=== PATIENT | female | born 1950 | race Two or more races ===

== ENCOUNTER 2017-11-01 15:07 | Emergency (ER) | payer MEDICARE, OTHER ==
[2017-11-01 19:06] LABS: ADD MAN DIFF? NO
[2017-11-01 19:16] LABS: ADD UMIC NO; UR ASCORBIC ACID NEGATIVE (NEGATIVE); UR BILIRUBIN (Dip) NEGATIVE (NEGATIVE); UR BLOOD (Dip) NEGATIVE (NEGATIVE); UR CLARITY CLEAR (CLEAR); UR COLOR STRAW (YELLOW); UR GLUCOSE (Dip) 3+ mg/dL (NEGATIVE); UR KETONES (Dip) TRACE mg/dL (NEGATIVE); UR LEUKOCYTE ESTERASE (Dip) NEGATIVE Leu/ul (NEGATIVE); UR NITRITE (Dip) NEGATIVE (NEGATIVE); UR TOTAL PROTEIN (Dip) NEGATIVE (NEGATIVE); UR UROBILINOGEN (Dip) NEGATIVE (NEGATIVE)
[2017-11-01 19:23] LABS: HEMOGLOBIN A1C 13.4 % (0-5.9)
[2017-11-01] MEDS: SOD CHLORIDE 0.9% 1,000 ML IV (19:26)
[2017-11-01 19:28] LABS: WHITE BLOOD COUNT 11.2 10^3/ul (4.8-10.8)
[2017-11-01 19:29] LABS: BASOPHIL # 0.1 10^3/ul (0.0-0.1); BASOPHILS % 0.4 % (0.0-2.0); EOSINOPHILS # 0.3 10^3/ul (0.0-0.5); HEMATOCRIT 43.2 % (37.0-47.0); HEMOGLOBIN 14.5 g/dl (12.0-16.0); LYMPHOCYTES # 4.3 10^3/ul (0.8-2.9); LYMPHOCYTES % 38.6 % (15.0-51.0); MEAN CORPUSCULAR HGB CONC 33.6 g/dl (32.0-37.0); MEAN CORPUSCULAR VOLUME 92.3 fl (82.0-101.0); MEAN PLATELET VOLUME 10.2 fl (7.4-10.4); MONOCYTE # 0.8 10^3/ul (0.3-0.9); MONOCYTES % 7.3 % (0.0-11.0); NEUTROPHIL # 5.6 10^3/ul (1.6-7.5); NEUTROPHILS % 50.2 % (39.0-77.0); PLATELET COUNT 246 10^3/UL (140-415); RED BLOOD COUNT 4.68 10^6/ul (4.20-5.40); RED CELL DISTRIBUTION WIDTH 12.6 % (11.5-14.5)
[2017-11-01 19:32] LABS: ALANINE AMINOTRANSFERASE 46 IU/L (13-69); ALBUMIN 4.7 g/dl (3.3-4.9); ALBUMIN/GLOBULIN RATIO 1.51; ALKALINE PHOSPHATASE 131 IU/L (42-121); AMYLASE 58 U/L (11-123); ANION GAP 19 (8-16); ASPARTATE AMINO TRANSFERASE 26 IU/L (15-46); BILIRUBIN,INDIRECT 0.3 mg/dl (0-1.1); BILIRUBIN,TOTAL 0.3 mg/dl (0.2-1.3); BLOOD UREA NITROGEN 18 mg/dl (7-20); CALCIUM 10.3 mg/dl (8.4-10.2); CARBON DIOXIDE 26 mmol/L (21-31); CHLORIDE 98 mmol/L (97-110); CREATININE 1.01 mg/dl (0.44-1.00); GLUCOSE 364 mg/dl (70-220); INR 0.86; LIPASE 104 U/L (23-300); MAGNESIUM 1.6 mg/dl (1.7-2.5); PHOSPHORUS 4.7 mg/dl (2.5-4.9); POTASSIUM 4.5 mmol/L (3.5-5.1); PROTIME 11.8 Sec (11.9-14.9); PT RATIO 0.9; SODIUM 138 mmol/L (135-144); TOTAL PROTEIN 7.8 g/dl (6.1-8.1)
[2017-11-01 19:33] LABS: PARTIAL THROMBOPLASTIN TIME 30.9 Sec (25.0-35.0)
[2017-11-01 19:33] LABS: LACTIC ACID 2.1 mmol/L (0.5-2.0)
[2017-11-01 20:21] LABS: TROPONIN-I < 0.010 ng/ml (0.000-0.120)
[2017-11-01] MEDS: CEFEPIME 2GM/50 ML (PMX) 50 ML IVPB (20:59)
[2017-11-01] MEDS: SODIUM CHLORIDE 0.9% 1L BAG IV* (21:31)
[2017-11-01] MEDS: VANCOMYCIN 1 GM (PMX) 250 ML IVPB (21:33)
[2017-11-01] MEDS: ONDANSETRON 4 MG INJ IV (21:33)
[2017-11-01] MEDS: morphine 4 MG/ML VIAL IV (21:33)
[2017-11-01 22:43] LABS: LACTIC ACID 1.4 mmol/L (0.5-2.0)
[2017-11-02] MEDS: ONDANSETRON 4 MG INJ IV (00:03)
[2017-11-02] MEDS: HYDROmorphONE 1 MG/ML SYG IV (00:04)
== END 2017-11-02 10:10 | disposition home or self-care (01) ==
LOC: E/R 11-02 10:10
DX: E11.65 Type 2 diabetes mellitus with hyperglycemia (principal); G43.009 Migraine without aura, not intractable, without status migrainosus; J84.9 Interstitial pulmonary disease, unspecified; J45.909 Unspecified asthma, uncomplicated; I10 Essential (primary) hypertension; R06.02 Shortness of breath; Z79.84 Long term (current) use of oral hypoglycemic drugs; Z87.891 Personal history of nicotine dependence
CPT/HCPCS: 71045; 71250; 80053; 81003; 82150; 82962; 83036; 83605; 83690; 83735; 84100; 84484; 85025; 85610; 85730; 87040; 87086; 93005; 96361; 96365; 96375; 96376; 99285-25

== ENCOUNTER 2018-09-21 15:29 | Emergency (ER) | payer MEDICARE, OTHER ==
[2018-09-21 16:33] LABS: ADD MAN DIFF? NO
[2018-09-21 16:37] LABS: BASOPHIL # 0.1 10^3/ul (0.0-0.1); BASOPHILS % 0.5 % (0.0-2.0); EOSINOPHILS # 0.1 10^3/ul (0.0-0.5); EOSINOPHILS % 0.9 % (0.0-7.0); HEMATOCRIT 41.1 % (37.0-47.0); HEMOGLOBIN 13.6 g/dl (12.0-16.0); LYMPHOCYTES # 2.5 10^3/ul (0.8-2.9); LYMPHOCYTES % 23.7 % (15.0-51.0); MEAN CORPUSCULAR HEMOGLOBIN 29.2 pg (29.0-33.0); MEAN CORPUSCULAR HGB CONC 33.1 g/dl (32.0-37.0); MEAN CORPUSCULAR VOLUME 88.4 fl (82.0-101.0); MEAN PLATELET VOLUME 10.2 fl (7.4-10.4); MONOCYTE # 0.8 10^3/ul (0.3-0.9); MONOCYTES % 7.9 % (0.0-11.0); NEUTROPHIL # 7.1 10^3/ul (1.6-7.5); NEUTROPHILS % 66.5 % (39.0-77.0); PLATELET COUNT 238 10^3/UL (140-415); RED BLOOD COUNT 4.65 10^6/ul (4.20-5.40); RED CELL DISTRIBUTION WIDTH 11.9 % (11.5-14.5)
[2018-09-21 16:37] LABS: WHITE BLOOD COUNT 10.7 10^3/ul (4.8-10.8)
[2018-09-21 16:40] LABS: ADD UMIC NO; UR ASCORBIC ACID NEGATIVE (NEGATIVE); UR BILIRUBIN (Dip) NEGATIVE (NEGATIVE); UR BLOOD (Dip) NEGATIVE (NEGATIVE); UR CLARITY CLEAR (CLEAR); UR COLOR STRAW (YELLOW); UR GLUCOSE (Dip) 3+ mg/dL (NEGATIVE); UR KETONES (Dip) NEGATIVE (NEGATIVE); UR LEUKOCYTE ESTERASE (Dip) NEGATIVE Leu/ul (NEGATIVE); UR NITRITE (Dip) NEGATIVE (NEGATIVE); UR SPECIFIC GRAVITY (Dip) 1.029 (1.003-1.030); UR TOTAL PROTEIN (Dip) NEGATIVE (NEGATIVE); UR UROBILINOGEN (Dip) NEGATIVE (NEGATIVE)
[2018-09-21 16:54] LABS: ANION GAP 13 (5-13); BLOOD UREA NITROGEN 27 mg/dl (7-20); CALCIUM 10.2 mg/dl (8.4-10.2); CARBON DIOXIDE 22 mmol/L (21-31); CHLORIDE 100 mmol/L (97-110); CREATININE 1.01 mg/dl (0.44-1.00); Estimated GFR 55 mL/min (>60); POTASSIUM 4.8 mmol/L (3.5-5.1); SODIUM 135 mmol/L (135-144)
[2018-09-21] MEDS: SOD CHLORIDE 0.9% 1,000 ML IV (17:01)
[2018-09-21] MEDS: DIPHENHYDRAMINE 50 MG INJ IV (17:01)
[2018-09-21] MEDS: KETOROLAC 30 MG INJ IV (17:01)
[2018-09-21] MEDS: METOCLOPRAMIDE 10 MG INJ IV (17:01)
[2018-09-21 17:08] LABS: GLUCOSE 465 mg/dl (70-220)
[2018-09-21] MEDS: ALBUTEROL 0.083% (NEB) 2.5 MG/3 ML AMP NEB (17:18)
[2018-09-21] MEDS: IPRATROPIUM (NEB) 0.5 MG/2.5 ML AMP NEB (17:18)
[2018-09-21] MEDS: LACTATED RINGER'S 1,000 ML IV (17:27)
[2018-09-21] MEDS: INSULIN LISPRO 100 UNIT/ML VIAL SC (17:30)
== END 2018-09-21 19:24 | disposition home or self-care (01) ==
LOC: E/R 19:24
DX: E11.65 Type 2 diabetes mellitus with hyperglycemia (principal); I10 Essential (primary) hypertension; G43.909 Migraine, unspecified, not intractable, without status migrainosus; J40 Bronchitis, not specified as acute or chronic; Z79.84 Long term (current) use of oral hypoglycemic drugs; Z87.891 Personal history of nicotine dependence
CPT/HCPCS: 36415; 80048; 81003; 82962; 85025; 94664; 96372; 96374; 96375; 99284-25

== ENCOUNTER → 2018-10-15 | Outpatient (CLI) | payer MEDICARE, OTHER | END | disposition home or self-care (01) | LOC: C/S 14:54 | DX: I25.84 Coronary atherosclerosis due to calcified coronary lesion (principal); R05 Cough | CPT/HCPCS: 71250; 73700 ==